=== PATIENT | female | born 1970 | race Two or more races ===

== ENCOUNTER 2024-10-26 10:56 | Outpatient (CLI) | payer OTHER ==
[~2024-10-26 10:56] MED LIST: FLEXERIL10 MG PO; ORPH100T PO; ULTRACET PO; VICODIN 5-3001 EACH PO
== END 2024-10-26 10:59 | disposition home or self-care (01) ==
LOC: SONOGRAMA 10:56
PROVIDERS: ATTEND Pathology Anatomic Pathology & Clinical Pathology
DX: D34 Benign neoplasm of thyroid gland (principal); E07.89 Other specified disorders of thyroid; E04.2 Nontoxic multinodular goiter